=== PATIENT | male | born 1985 | race Caucasian/White ===

== ENCOUNTER 2024-05-10 17:56 | Day surgery (SDC) | payer OTHER, SELFPAY ==
[2024-05-10] VITALS (12 sets, daily range): BP systolic 113–143; BP diastolic 62–86; BMI 27.6
[2024-05-10 12:51] LABS: % Basophils 0.2 % (0-2); % Eosinophils 0.1 % (0-6); % Immature Granulocytes 0.4 % (0-0.5); % Lymphocytes 3.6 % (20.5-51.1); % Monocytes 2.7 % (1.7-9.3); Absolute Immature Granulocytes 0.1 10^3/uL (0-0.05); Absolute Lymphocytes 0.5 10^3/uL (1.2-3.4); Absolute Monocytes 0.4 10^3/uL (0.1-0.6); Absolute Neutrophils 12.6 10^3/uL (1.4-6.5); Hematocrit 40.9 % (39.0-52.0); Hemoglobin 14.8 g/dL (13.0-18.0); Mean Corp Hgb Conc. 36.2 g/dL (33.0-37.0); Mean Corpuscular Hgb 31.4 pg (27.0-31.0); Mean Corpuscular Volume 86.8 fL (80.0-94.0); Mean Platelet Volume 10.5 fL (7.4-10.4); Nucleated Red Blood Cells % 0 % (-); Platelet Count 223 10^3/uL (130-400); Red Blood Cell Count 4.71 10^6/uL (4.70-6.10); Red Cell Dist. Width 12.2 % (11.5-14.5); White Blood Cell Count 13.6 10^3/uL (4.8-10.8)
[2024-05-10 13:05] LABS: Lactic Acid 1.3 mmol/L (0.7-2.0)
[2024-05-10 13:06] LABS: ALT (SGPT) 74 U/L (0-50); AST (SGOT) 59 U/L (17-59); Albumin 4.7 g/dl (3.5-5.0); Alkaline Phosphatase 58 U/L (38-126); Blood Urea Nitrogen 15 mg/dl (9-20); Calcium 9.6 mg/dl (8.4-10.2); Carbon Dioxide 27 mmol/L (22-30); Chloride 101 mmol/L (98-107); Glucose 113 mg/dl (70-99); Lipase 40 U/L (23-300); Sodium 138 mmol/L (135-145); Total Bilirubin 1.7 mg/dl (0.2-1.3); Total Protein 7.3 g/dl (6.3-8.2); eGFR > 60.00
[2024-05-10] MEDS: MOTRIN 400 MG PO (13:16)
[2024-05-10] MEDS: OMNIPAQUE 50 ML PO (13:16)
--- NOTE | 2024-05-10 13:36 | ED.GENMED ---
History of Present Illness
General
Chief Complaint: Abdominal Pain
Source: patient
Exam Limitations: none
Time Seen by Provider: 05/10/24 12:56
Nursing documentation reviewed up to this point in time: agreed with
History of Present Illness
History of Present Illness:
Patient presents to ED secondary to persistent lower abdominal pain with nausea sensation, as well as chills since last night. Abdominal pain described as sharp, nonradiating, without any alleviating or exacerbating factors. Upon arrival, patient
is found to be febrile, which he was not aware of. Denies trauma. Denies back pain. Denies difficulty with urination. Denies previous history of similar symptoms. Denies recent change in diet. Denies recent travel.
Past History
Past History
ED Past Medical History: None
Social History
Tobacco: Non-smoker
Alcohol: Occasional
Personal:
Living: with family
Employment: Employed ([employer])
Review of Systems
Review of Systems
Allergies reviewed?: Yes
All Other Systems: ROS reviewed and negative except as documented in HPI and ROS
Constitutional: Denies chills
EENT: Reports no symptoms
Respiratory: Reports no symptoms
Cardiac: Reports no symptoms
ABD/GI: Reports abdominal pain and nausea; Denies vomiting or diarrhea
: Reports no symptoms; Denies flank pain
Musculoskeletal: Reports no symptoms; Denies back pain
Skin: Reports no symptoms
Neurological: Reports no symptoms
Phy Exam
Physical Exam
Physical Exam:
Physical Exam
General: mild painful distress, not acutely ill. febrile
Head: nc/at. eomi
Neck: supple. no meningeal signs.
Heart: tachycardic, no murmur. equal radial pulses.
Lungs: no acute respiratory distress. clear bilaterally
Abdomen: normal bowel sounds. moderate RLQ tenderness to palpation. no guarding/rebound.
Neuro: alert and oriented. no focal neurological deficits
Skin: no rash
Psychiatric: well kept. interactive and cooperative
Extremities: no edema. no calf tenderness
Sepsis
Sepsis Screening
Sepsis Assessment: Sepsis Ruled Out
Sepsis Screen
Sepsis Screen: Sepsis Ruled Out
Date: 05/11/24
Time: 18:54
Course
Orders/Labs/Results
Orders:
Orders
05/10/24
VTE Contraindication Routine
VTE Mechanical Device Contraindication: Low Risk- LOS < 2 days
Pharmocologic Contraindication: Low Risk- LOS < 2 days
Risk assessment completed and pt is low risk: Yes
05/10/24 12:40
CMP [Comprehensive Metabolic Panel] Urgent
Complete Blood Count/With Diff Urgent
Lactic Acid Urgent
Lipase Urgent
05/10/24 13:11
CT Abd/pel W Iv And Oral Contr Urgent
Comment:
Reason For Exam: RLQ pain
Ibuprofen [Motrin] 400 mg PO NOW STA
Iohexol [Omnipaque] See Protocol PO NOW STA
05/10/24 Dinner
NPO
Allow oral meds: Yes
Allow clear liquids: Sips of Clears
NPO with Ice Chips: Yes
05/10/24 17:12
HYDROmorphone [Dilaudid] 0.25 mg IV PACU-Q5MPRN PRN
HYDROmorphone [Dilaudid] 0.5 mg IV PACU-Q5MPRN PRN
Meperidine [Demerol] 12.5 mg IV PACU-Q5MPRN PRN
Ondansetron Injectable [Zofran] 4 mg IV PACU-ONCEPRN PRN
Prochlorperazine [Compazine] 5 mg IV PACU-ONCEPRN PRN
Notify MD As Directed
Notify physician if: for SDS patients with known or suspected sleep obstructive sleep apnea, monitor in the
PACU.
Notify MD for any apneic/desaturation episodes
O2 Therapy [RESP] Urgent
Titrate/Wean O2 to maintain O2 sat greater than (%): 92
Special Instructions: -Provide supplemental oxygen to achieve O2 sat of 92% or greater.
-After 15 min, may wean O2 and discontinue if patient is able to maintain O2 sat of 92%
or greater during recovery period.
If patient is a discharge home, without oxygen therapy, notify anestheiologist if
unable to maintain O2 SAT of 92% or greater on room air for MD clearance.
05/10/24 17:14
Bupivacaine 0.5%Pf/Epinephrin [Sensorcain-Mpf Epi 0.5%-0.0005] 30 ml .ROUTE .STK-MED ONE
05/10/24 17:16
Lidocaine 2% Mpf [Xylocaine Mpf 2%] 100 mg .ROUTE .STK-MED ONE
Propofol [Diprivan] 20 ml .ROUTE .STK-MED
Rocuronium [place] [Rocuronium] 50 mg .ROUTE .STK-MED ONE
05/10/24 17:17
Dexamethasone Sod Phosphate [Decadron] 20 mg .ROUTE .STK-MED ONE
Fentanyl Citrate/Pf [Sublimaze] 100 mcg .ROUTE .STK-MED ONE
Midazolam HCl [Versed] 2 mg .ROUTE .STK-MED ONE
Ondansetron Injectable [Zofran] 4 mg .ROUTE .STK-MED ONE
05/10/24 17:26
Piperacillin/Tazo 3.375 Gram [Zosyn] 3.375 gram in 50 ml IV NOW
05/10/24 17:45
Code Status As Directed
Resuscitation Status: Full Code
Activity As Directed
Activity Level: Out of Bed-Early Mobility
Intake/ Output As Directed
Frequency: Per unit guidelines
Vital Signs As Directed
Frequency: Per unit guidelines
05/10/24 17:46
HYDROmorphone [Dilaudid] 0.5 mg IV Q2HPRN PRN
Ondansetron Injectable [Zofran] 4 mg IV Q6HPRN PRN
05/10/24 18:00
Ketorolac [Toradol] 10 mg IV Q6H
05/10/24 18:11
HYDROmorphone [Dilaudid] 0.25 mg IV PACU-Q5MPRN PRN
HYDROmorphone [Dilaudid] 0.5 mg IV PACU-Q5MPRN PRN
HYDROmorphone [Dilaudid] 0.5 mg IV Q2HPRN PRN
Meperidine [Demerol] 12.5 mg IV PACU-Q5MPRN PRN
Ondansetron Injectable [Zofran] 4 mg IV PACU-ONCEPRN PRN
Ondansetron Injectable [Zofran] 4 mg IV Q6HPRN PRN
Prochlorperazine [Compazine] 5 mg IV PACU-ONCEPRN PRN
05/10/24 18:32
OR Pathology Routine
Pre-Operative Diagnosis: ACUTE APPENDICITIS, UMBILICAL HERNIA
Post-Operative Diagnosis: ACUTE APPENDICITIS, UMBILICAL MASS
Operative Procedure: LAPAROSCOPIC APPENDECTOMY, PARTIAL CECECTOMY, UMBILICAL HERNIA REPAIR
Surgeon: ilene
Circulating Nurse: drew
Specimen Type: umbilical hernia
:: APPENDIX
05/10/24 18:54
HYDROmorphone [Dilaudid] 1 mg .ROUTE .STK-MED ONE
05/10/24 19:06
Sugammadex Sodium [Bridion] 200 mg .ROUTE .STK-MED ONE
05/10/24 19:36
Admit Patient As Directed
Co-Sign Provider:
Level of Care: Post Proc/Surg Recovery
Assign to:: Medical/Surgical
Physician / Group: Serafin
Diagnosis: Acute Appendicitis
Patient Condition: Fair
05/10/24 19:41
PRN Pain Medication Management As Directed
May give lesser potent ordered pain med per pt: Yes
preference::
Protocol:: Medication orders for pain may be administered in a
manner that supports deferring to patient preference
when the pt is:
- Requesting an ordered lesser potent pain medication.
Least to most potent pain medications are defined
as: acetaminophen < NSAID < tramadol < opioids
(morphine, oxycodone, hydromorphone).
- Requesting a lesser dose of the same medication IF
ORDERED.
- Requesting a less intrusive route of administration
if both routes are prescribed by the provider (PO <
IV).
05/10/24 20:00
Acetaminophen [Tylenol] 650 mg PO Q4HWA
Acetaminophen [Tylenol] 650 mg PO Q4HWA
05/11/24 00:00
Ketorolac [Toradol] 10 mg IV Q6H
05/11/24 00:40
Case Management Consult ONCE
Case Management Consult: Advanced Directive
Requested By:: NURSING
Comment:
05/11/24 Breakfast
Regular
At Your Request: Full Participation
05/11/24 09:34
Discharge Patient As Directed
Discharge patient after: lunch
Is patient a candidate for the influenza vaccine?: No
Do you have a designated caregiver: Yes-same as spokesperson
Abnormal Lab Results
05/10/24
12:40
WBC 13.6 H 10^3/uL
(4.8-10.8)
MCH 31.4 H pg
(27.0-31.0)
MPV 10.5 H fL
(7.4-10.4)
Abs Immat Gran (auto) 0.1 H 10^3/uL
(0-0.05)
Absolute Neuts (auto) 12.6 H 10^3/uL
(1.4-6.5)
Absolute Lymphs (auto) 0.5 L 10^3/uL
(1.2-3.4)
Neutrophils % 93.0 H %
(42.2-75.2)
Lymphocytes % 3.6 L %
(20.5-51.1)
Glucose 113 H mg/dl
(70-99)
Total Bilirubin 1.7 H mg/dl
(0.2-1.3)
ALT 74 H U/L
(0-50)
05/10/24 12:40
05/10/24 12:40
Vital Signs
Initial and Last Documented VS:
Initial Vital Signs
Temp Pulse Resp BP Pulse Ox
100.7 F H 113 16 118/71 97
05/10/24 12:24 05/10/24 12:24 05/10/24 12:24 05/10/24 12:24 05/10/24 12:24
Last Documented Vital Signs
Temp Pulse Resp BP Pulse Ox
97.6 F 87 19 137/79 98
05/11/24 11:19 05/11/24 11:19 05/11/24 11:19 05/11/24 11:19 05/11/24 11:19
MDM/Problems Addressed
MDM/Problems Addressed:
History, exam, and CT scan consistent with acute appendicitis, without abscess/perforation.
Surgery, Dr. Betancourt, notified via [place] text.
*Critical Care Note
Total Time (30-74mins, 75-104mins- exclusive of procedures): Not Applicable
ED Attending Note
-
Portions of this chart may have been created with voice recognition software.� Occasional wrong word or��sound alike� substitutions may have occurred due to the inherent limitations of voice recognition software.
Discharge Plan
Departure
Patient Disposition: Admit
Date of Disposition: 05/10/24
Time of Disposition: 16:01
Presentation/result/management discussed w/ accepting MD/DO:
Discharge Problem:
Acute appendicitis
Interventions
Interventions:
*Risk Screen - Suicide Last Done: 05/10/24 21:14
*General Assessment Last Done: 05/10/24 14:03
*Neglect/Abuse Screening Last Done: 05/10/24 12:24
*ED COVID-19 Vaccine History Last Done: 05/10/24 21:14
*Nursing Disposition Last Done: 05/10/24 17:55
[facility] Assessment Last Done: 05/10/24 14:03
Discharge Date and Time
Discharge Date/Time: 05/10/24 17:56
[2024-05-10] MEDS: ZOSYN 50 IV (17:28)
--- NOTE | 2024-05-10 17:31 | HPS.HSE ---
Family Physician
-
Family Physician: Delbert Infante
Chief Complaint
-
Right lower quadrant abdominal pain
History of Present Illness
This is a 38 male with no significant past medical history who presents with a 1 day history of sharp nonradiating initially periumbilical now right lower quadrant abdominal pain. The patient denies Fever, Chest Pain, Shortness Of Breath, Nausea,
Vomiting, changes in urinary and bowel habits, unintentional weight loss, jaundice, icterus, acolic stools. Dad does have Crohn's disease he believes.
Last Endoscopy: Never
Last colonoscopy: Never
Medical History
Past Medical History
Past Medical History: Reports None
Past Surgical History: Reports None
Social History
Tobacco: Non-smoker
Alcohol: Occasional
Drug: None
Personal:
Living: With Family
Employment: Employed
Family History
Family History: Not pertinent
Allergies / Home Medications
Allergies reflects when Allergies were last updated in [facility].
Home Medications with original date entered in [facility]
Allergy/Medication List:
None
Review of Systems
-
A 12 point ROS was completed and negative except as noted: Yes
Physical Exam
Vital Signs
Vital Signs
Temp Pulse Resp BP Pulse Ox
100.7 F H 113 18 143/62 99
05/10/24 12:24 05/10/24 14:08 05/10/24 14:08 05/10/24 14:08 05/10/24 14:08
Physical Exam
General: Well Developed
HEENT: NormoCephalic
Respiratory: Clear
GI: Soft, Non Distended, Tender (Tender to palpation in the right lower quadrant.) and Other (Mildly tender umbilical hernia)
Laboratory Results
-
05/10/24 12:40
05/10/24 12:40
Laboratory Results
Lactic Acid 1.3 mmol/L (0.7-2.0) 05/10/24 12:40
Total Bilirubin 1.7 mg/dl (0.2-1.3) H 05/10/24 12:40
AST 59 U/L (17-59) 05/10/24 12:40
ALT 74 U/L (0-50) H 05/10/24 12:40
Alkaline Phosphatase 58 U/L (38-126) 05/10/24 12:40
Lipase 40 U/L (23-300) 05/10/24 12:40
Data Reviewed
-
CT Scan: Image Personally Visualized and interpreted, Discussed with Physician and Discussed with Patient
Lab Data: Labs Reviewed by me, Discussed with Physician and Discussed with Patient
Impression/Plan
-
IMPRESSION:
This is a 38-year-old male who presents with a 1 day history of abdominal pain. Exam, imaging, blood work all consistent with acute appendicitis.
PLAN:
Will plan for a laparoscopic appendectomy in the OR today.
N.p.o., IV fluids, IV antibiotics.
Risks/Benefits/Alternatives, expected postoperative course and possible complications (bleeding, infection, injury to surrounding structures, acute/chronic pain) discussed at length. Patient wishes to proceed with surgery. All questions answered.
Consent obtained.
I spent 60 minutes in total for the care of this patient today including direct patient care and counseling, reviewing labs, imaging, coordination of care, as well as documentation.
--- NOTE | 2024-05-10 17:35 | W.SUR.PREOP ---
Pre-Operative Surgical Note
-
I have examined this patient prior to the performance of the scheduled procedure.
The patient's condition is unchanged from the time of the current History and
Physical and the patient is able to undergo the scheduled procedure.
--- NOTE | 2024-05-10 19:22 | W.IMMPOSTOP ---
Surgical Immed Post Op Note
-
Primary Surgeon: Clyde Betancourt MD
Assisting Surgeon: None
Pre-op Diagnosis: Acute appendicitis, umbilical hernia
Post-op Diagnosis: Appendiceal mass, umbilical hernia
Procedure Performed:
1. Laparoscopic partial cecectomy
2. Open primary umbilical hernia repair
Anesthesia Type: General
Specimen / Cultures:
1. Umbilical hernia
2. Partial cecectomy
Estimated Blood Loss: 3 cc
Complications: None
Operative Findings: 1.5 cm umbilical hernia containing preperitoneal fat. Just to the left of the umbilicus. Contents resected and sent for pathology. Intra-abdominal access gained through this defect with initially a 5 mm port. Standard 3 port
appendectomy. The appendix was mildly inflamed but but there was a palpable and visible mass at the base of the appendix that was fairly firm but mobile. The mesentery of the appendix was ligated with a bipolar energy device. The base of the
cecum was mobilized and divided using 2 fires of a 60 purple on an Endo JUAN stapler. No other masses noted around the abdomen or over the surface of the liver. The specimen was placed in a 5 mm specimen retrieval bag and removed.
POST OP PLAN:
Imaging: None
Labs: Routine AM
Diet: Advance to Regular as tolerated
Analgesia: Tylenol 650mg q6 Ligia, Dori 5mg q6 PRN, Dilaudid 0.5mg q2h PRN
Neuro/vascular checks: q4h
AC/AP: Hold Therapeutic AC, Ok for DVT PPx
Activity: Ad Steph
Wound/Incisions/Drains: Routine
Abx: Will do 24 hours perioperative antibiotics.
Dispo: RNF, anticipate discharge home tomorrow.
[2024-05-10] MEDS: DILAUDID 0.5 MG IV (20:21)
--- NOTE | 2024-05-10 21:05 | PTCARENOTE ---
Pt arrived at 21:00 from PACU post Lap Appy, Partial Cecectomy, Umbilical Hernia Repair with General and Local EBL 3mL. Pt AOx3. bed in a low possition, pt denies pain, call abrams in reach.
[2024-05-10] MEDS: TORADOL 10 MG IV (23:45)
[2024-05-10] MEDS: TYLENOL PO (23:55)
[2024-05-11] MEDS: TYLENOL 650 MG PO ×4 (01:30→11:20)
[2024-05-11 02:52] VITALS: BP 114/66
[2024-05-11] MEDS: TORADOL 10 MG IV ×2 (05:04→11:20)
[2024-05-11 07:50] VITALS: BP 130/73
--- NOTE | 2024-05-11 09:34 | W.PN.GS2 ---
Today's Communication / Plan
-
Dispo planning
Assessment / Plan
-
This is a 38-year-old male who presents with 1 day history of right lower quadrant pain found to have acute appendicitis on CT scan. POD#1 laparoscopic appendectomy. Appendiceal mass noted the base of the appendix otherwise doing well, expected
postoperative course.
Advance diet
DC home today
Time Spent
Total Time Spent with Patient (in minutes): 20
Subjective Data
-
Date of Service: May 11, 2024
Interval Events:
No acute events overnight. Slept well. Pain Controlled. Denies Nausea/Vomiting, +bowel function. Tolerating diet.
Objective Data
-
Intake and Output
05/10/24 05/11/24 05/12/24
06:59 06:59 06:59
Intake Total 200 / 200
Output Total 400 / 400
Balance -200 / -200
Intake:
IV fluids (Total) 200 / 200
Normosol 200 / 200
Output:
Urine, Voided 400 / 400
Vital Signs
Temp Pulse Resp BP Pulse Ox
98.5 F 84 18 130/73 98
05/11/24 07:50 05/11/24 07:50 05/11/24 07:50 05/11/24 07:50 05/11/24 07:50
Lab Results
05/10/24 12:40
05/10/24 12:40
Calcium 9.6 mg/dl (8.4-10.2) 05/10/24 12:40
Total Bilirubin 1.7 mg/dl (0.2-1.3) H 05/10/24 12:40
AST 59 U/L (17-59) 05/10/24 12:40
ALT 74 U/L (0-50) H 05/10/24 12:40
Alkaline Phosphatase 58 U/L (38-126) 05/10/24 12:40
Total Protein 7.3 g/dl (6.3-8.2) 05/10/24 12:40
Albumin 4.7 g/dl (3.5-5.0) 05/10/24 12:40
Physical Exam
-
GENERAL/NEURO: Awake, Alert, no distress
CHEST: Unlabored breathing on RA
ABDOMEN: Soft, Non-Tender, Non-Distended, incisions clean dry and intact.
--- NOTE | 2024-05-11 09:37 | OR.RPT ---
Addendum entered and electronically signed by Clyde Betancourt MD 05/17/24 17:10:
Date of operation should be 05/10/2024
Original Note:
Operative Report
Operative Report
Patient Name: Rafal Lee
: 1985
Date of Operation: 05/11/2024
Preoperative Diagnosis: Acute Appendicitis
Postoperative Diagnosis: Appendiceal mass
Procedure(s):
1. Laparoscopic partial cecectomy
2. Open primary umbilical hernia repair
Surgeon(s):
Dr. Betancourt
Mirror Painter(s):
None
Anesthesia: General
Estimated Blood Loss: 3 cc
Urine Output: None
Drains/Lines/Implants: None
Specimens:
1. Umbilical hernia
2. Partial cecectomy
HPI/Surgical Indications:
This is a 38 year old male who presents with a 1 day history of abdominal pain. Exam, labs and imaging are consistent with acute appendicitis. Risks/Benefits/Alternatives were discussed at length, and the patient agreed to proceed with surgery.
Operative Findings: 1.5 cm umbilical hernia containing preperitoneal fat. Just to the left of the umbilicus. Contents resected and sent for pathology. Intra-abdominal access gained through this defect with initially a 5 mm port. Standard 3 port
appendectomy. The appendix was mildly inflamed but but there was a palpable and visible mass at the base of the appendix that was fairly firm but mobile. The mesentery of the appendix was ligated with a bipolar energy device. The base of the
cecum was mobilized and divided using 2 fires of a 60 purple on an Endo JUAN stapler. No other masses noted around the abdomen or over the surface of the liver. The specimen was placed in a 5 mm specimen retrieval bag and removed.
Procedure Description:
The patient was placed in the supine position, with the left arm tucked, and general anesthesia was induced. The abdomen was prepared and draped in a sterile fashion so as to expose the entire abdomen. A surgical time out was taken. We began by
making an infraumbilical incision and isolating his umbilical hernia which appeared to be protruding just the left of his umbilicus. This was hernia sac was isolated off of the umbilical stalk and opened. It was containing preperitoneal fat and
was resected to the level of the surrounding fascia. The defect measured roughly 1.5 cm. Through this aperture we grasped the peritoneal layer and incised it with Metzenbaum scissors. A 5 mm balloontipped trocar was then inserted into the abdomen
and pneumoperitoneum was achieved. After confirming no injury on entrance, two additional 5mm ports were placed in the suprapubic area just off midline and in the left lower quadrant. The patient was placed in Trendelenberg with the right slightly
up. The appendix was identified and
Though mildly hyperemic it did not appear particularly inflamed or infected. Using laparoscopic instruments I was able to palpate near the base of the appendix where it appeared slightly deformed and a hard but mobile intraluminal mass could be
appreciated. The serosa of the appendix and cecum appeared normal. We looked around the abdominal wall and viscera and no other masses or abnormalities were noted. The mesentery of the appendix was ligated using a laparoscopic bipolar energy
device. The inferior portion of the white line of Toldt was also incised to help mobilize the cecum. Thankfully there was enough space between the TI and the base of the appendix that I felt like I could do a partial cecectomy and remove the
entire mass. The umbilical 5 mm port was upsized to a 12 and using 2 fires of a 60 purple load on an Endo JUAN stapler performed a partial cecectomy taking care to not come across the mass at the base of the appendix. The specimen was placed in a
specimen retrieval bag. Hemostasis was confirmed and the ports were removed under visualization. The specimen was passed off the field. The umbilical hernia was closed with a running 0-PDS and the skin for all three ports was closed with interrupted
4-0 monocryls and covered with dermabond. The patient was awoken from anesthesia in good condition and transported to the recovery area.
I was the attending physician and performed the procedure with no assistance. I was present for all portions of the case.
Clyde Betancourt MD
--- NOTE | 2024-05-11 10:33 | CM ---
Met with pt at bedside
Pt reports he lives alone in a 2 story home; 7 steps to enter, 15 steps to 2nd fl
Independent, Employed [employer], drives
DME - none
SNF/HH - no past hx
Has ride home at discharge
PCP - Delbert Jim
Pharm - [employer]
CM consult - advance directive
Discussed with pt. Given information packet
Plan - anticipate home no needs
[2024-05-11 11:19] VITALS: BP 137/79
== END 2024-05-11 13:07 | disposition home or self-care (01) ==
LOC: SDS 17:56
PROVIDERS: Emergency Medicine; ATTENDING PHYSICIAN Surgery; EMERGENCY PHYSICIAN Emergency Medicine; FAMILY PHYSICIAN Family Medicine
DX: K35.80 Unspecified acute appendicitis (principal); K42.9 Umbilical hernia without obstruction or gangrene; K63.9 Disease of intestine, unspecified
CPT/HCPCS: 44970; 88304; 88307; 74177; 80053; 83605; 83690; 85025; 96365; 99285; C1776; Q9967

== ENCOUNTER 2024-05-31 20:11 | Emergency (ER) | payer OTHER, SELFPAY ==
[2024-05-31 20:16] VITALS: BP 150/77
[2024-05-31 20:43] LABS: % Basophils 0.4 % (0-2); % Eosinophils 2.7 % (0-6); % Immature Granulocytes 0.3 % (0-0.5); % Lymphocytes 47.6 % (20.5-51.1); % Monocytes 12.7 % (1.7-9.3); % Neutrophils 36.3 % (42.2-75.2); Absolute Eosinophils 0.2 10^3/uL (0-0.7); Absolute Lymphocytes 3.2 10^3/uL (1.2-3.4); Absolute Monocytes 0.9 10^3/uL (0.1-0.6); Absolute Neutrophils 2.5 10^3/uL (1.4-6.5); Hematocrit 41.9 % (39.0-52.0); Hemoglobin 14.3 g/dL (13.0-18.0); Mean Corp Hgb Conc. 34.1 g/dL (33.0-37.0); Mean Platelet Volume 10.5 fL (7.4-10.4); Nucleated Red Blood Cells % 0 % (-); Platelet Count 270 10^3/uL (130-400); Red Blood Cell Count 4.76 10^6/uL (4.70-6.10); Red Cell Dist. Width 12.4 % (11.5-14.5); White Blood Cell Count 6.8 10^3/uL (4.8-10.8)
[2024-05-31 21:00] LABS: ALT (SGPT) 91 U/L (0-50); AST (SGOT) 85 U/L (17-59); Albumin 4.6 g/dl (3.5-5.0); Alkaline Phosphatase 59 U/L (38-126); Blood Urea Nitrogen 16 mg/dl (9-20); Calcium 9.3 mg/dl (8.4-10.2); Carbon Dioxide 30 mmol/L (22-30); Chloride 101 mmol/L (98-107); Glucose 125 mg/dl (70-99); Lipase 71 U/L (23-300); Potassium 3.6 mmol/L (3.5-5.1); Sodium 141 mmol/L (135-145); Total Bilirubin 0.6 mg/dl (0.2-1.3); Total Protein 7.3 g/dl (6.3-8.2); eGFR > 60.00
[2024-05-31 21:12] LABS: Troponin I < 0.012 ng/ml
[2024-05-31 22:20] VITALS: BP 127/69
[2024-05-31 22:36] VITALS: BMI 26.3
--- NOTE | 2024-05-31 22:38 | ED.GENMED ---
History of Present Illness
<Aleja Campbell NP - Last Filed: 05/31/24 23:43>
General
Chief Complaint: Abdominal Pain
Source: patient
Exam Limitations: none
Time Seen by Provider: 05/31/24 21:47
Nursing documentation reviewed up to this point in time: agreed with
History of Present Illness
History of Present Illness:
Patient to ED with complaint of sudden onset of upper abdominal pain. Became diaphoretic, nauseous. Denies fever/chills, vomiting or diarrhea. Pain has decreased but still feels discomfort. Brought to ED by father for eval. S/p appendectomy x
2 weeks.
Past History
<Aleja Campbell NP - Last Filed: 05/31/24 23:43>
Past History
ED Past Medical History: None
ED Past Surgical History: Appendectomy (2 weeks ago)
Social History
Tobacco: Non-smoker
Alcohol: Occasional
Drug: None
Personal:
Living: with family
Employment: Employed ([employer])
Review of Systems
<Aleja Campbell NP - Last Filed: 05/31/24 23:43>
Review of Systems
Allergies reviewed?: Yes
All Other Systems: ROS reviewed and negative except as documented in HPI and ROS
Constitutional: Reports no symptoms
EENT: Reports no symptoms
Respiratory: Reports no symptoms
Cardiac: Reports no symptoms
ABD/GI: Reports abdominal pain
: Reports no symptoms
Musculoskeletal: Reports no symptoms
Skin: Reports no symptoms
Neurological: Reports no symptoms
Psychiatric: Reports no symptoms
Phy Exam
<Aleja Campbell NP - Last Filed: 05/31/24 23:43>
General Physical Exam
General Presentation: well appearing and no apparent distress
General age: appears stated age
General Skin: warm and dry
General Habitus: normal
Pulmonary Exam
Pulmonary Exam: no respiratory distress
Gastrointestinal Exam
Gastrointestinal Exam: normal bowel sounds, soft, no organomegaly, non distended and no cva tenderness
Palpation: left upper quadrant: Minimal tenderness, left lower quadrant: No tenderness, right upper quadrant: Minimal tenderness and right lower quadrant: No tenderness
Musculoskeletal Exam
Musculoskeletal Exam: full ROM
Skin Exam
Skin Exam: normal color, warm/dry and no rash
Psychiatric Exam
Psychiatric Exam: normal mood/affect
Course
<Aleja Campbell NP - Last Filed: 05/31/24 23:43>
Orders/Labs/Results
Orders:
Orders
05/31/24 20:20
Electrocardiogram (*1) Urgent
Reason for Study: Abdominal Pain
EKG- Treatment ONCE
05/31/24 20:28
Complete Blood Count/With Diff Urgent
Comprehensive Metabolic Panel Urgent
Lipase Urgent
Troponin I Urgent
05/31/24 21:56
US Abdomen Complete/Upper Urgent
Comment:
Reason For Exam: Upper abd. pain
05/31/24 23:42
Ketorolac [Toradol] 30 mg IV NOW STA
06/01/24 01:00
CT Abd/pelvis W Iv Cont Urgent
Reason For Exam: upper abd. pain, s/p appendectomy
Abnormal Lab Results
05/31/24
20:28
MPV 10.5 H fL
(7.4-10.4)
Absolute Monos (auto) 0.9 H 10^3/uL
(0.1-0.6)
Neutrophils % 36.3 L %
(42.2-75.2)
Monocytes % 12.7 H %
(1.7-9.3)
Glucose 125 H mg/dl
(70-99)
AST 85 H U/L
(17-59)
ALT 91 H U/L
(0-50)
05/31/24 20:28
05/31/24 20:28
Vital Signs
Initial and Last Documented VS:
Initial Vital Signs
Temp Pulse Resp BP Pulse Ox
97.7 F 73 18 150/77 99
05/31/24 20:16 05/31/24 20:16 05/31/24 20:16 05/31/24 20:16 05/31/24 20:16
Last Documented Vital Signs
Temp Pulse Resp BP Pulse Ox
97.7 F 85 14 114/75 96
05/31/24 20:16 06/01/24 02:00 06/01/24 01:15 06/01/24 02:00 06/01/24 02:00
<Freddy Knox MD - Last Filed: 06/01/24 02:23>
Orders/Labs/Results
Orders:
Orders
05/31/24 20:20
Electrocardiogram (*1) Urgent
Reason for Study: Abdominal Pain
EKG- Treatment ONCE
05/31/24 20:28
Complete Blood Count/With Diff Urgent
Comprehensive Metabolic Panel Urgent
Lipase Urgent
Troponin I Urgent
05/31/24 21:56
US Abdomen Complete/Upper Urgent
Comment:
Reason For Exam: Upper abd. pain
05/31/24 23:42
Ketorolac [Toradol] 30 mg IV NOW STA
06/01/24 01:00
CT Abd/pelvis W Iv Cont Urgent
Reason For Exam: upper abd. pain, s/p appendectomy
Abnormal Lab Results
05/31/24
20:28
MPV 10.5 H fL
(7.4-10.4)
Absolute Monos (auto) 0.9 H 10^3/uL
(0.1-0.6)
Neutrophils % 36.3 L %
(42.2-75.2)
Monocytes % 12.7 H %
(1.7-9.3)
Glucose 125 H mg/dl
(70-99)
AST 85 H U/L
(17-59)
ALT 91 H U/L
(0-50)
05/31/24 20:28
05/31/24 20:28
Vital Signs
Initial and Last Documented VS:
Initial Vital Signs
Temp Pulse Resp BP Pulse Ox
97.7 F 73 18 150/77 99
05/31/24 20:16 05/31/24 20:16 05/31/24 20:16 05/31/24 20:16 05/31/24 20:16
Last Documented Vital Signs
Temp Pulse Resp BP Pulse Ox
97.7 F 85 14 114/75 96
05/31/24 20:16 06/01/24 02:00 06/01/24 01:15 06/01/24 02:00 06/01/24 02:00
<Freddy Knox MD - Last Filed: 06/01/24 02:23>
Update Note
Update Note:
CT report reviewed and discussed with patient, including ductal gallstones. Repeat abdominal exam: Soft and nontender. Discussed treatment options, including admission versus outpatient consultation with GI physician. At this time, as pain has
resolved completely, patient would like to discharge home, for an urgent outpatient follow-up. Advised to return to ED with worsening symptoms, i.e. fever/worsening pain/vomiting. Patient referred to GI physician's office via [place] text.
ED Attending Note
<Aleja Campbell NP - Last Filed: 05/31/24 23:43>
-
Portions of this chart may have been created with voice recognition software.� Occasional wrong word or��sound alike� substitutions may have occurred due to the inherent limitations of voice recognition software.
Discharge Plan
Departure
Patient Disposition: Home (Routine Discharge)
Date of Disposition: 06/01/24
Time of Disposition: 02:19
Patient with high blood pressure during this ER visit?: Yes
Discharge Problem:
Choledocholithiasis
Instructions: Gallstones (DC), Low-fat diet
Prescriptions:
No Action
acetaminophen [Tylenol Extra Strength] 500 mg Tablet
1,000 mg PO Q6HPRN PRN (Reason: mild pain)
tramadol 50 mg tablet
25 mg PO Q6HPRN PRN (Reason: severe pain/breakthrough pain) Qty: 8 0RF
ibuprofen 600 mg tablet
600 mg PO Q6H PRN (Reason: pain) Qty: 14 0RF
Referrals:
Delbert Infante DO [Family Provider] -
Marnie Willoughby MD [Active] -
Activity Restrictions/Additional Instructions:
As discussed, please follow-up with referred GI physician for further evaluation and treatment. Please return to ED immediately with worsening symptoms, i.e. fever/worsening pain/vomiting.
Interventions
Interventions:
*Risk Screen - Suicide Last Done: 05/31/24 20:16
*General Assessment Last Done: 05/31/24 20:16
*Neglect/Abuse Screening Last Done: 06/01/24 00:46
ED- Fall Risk Assessment Last Done: 05/31/24 23:17
*ED COVID-19 Vaccine History Last Done: 05/31/24 20:16
UY-Ghvlbe-Vxlkttabrg Assessment Last Done: 05/31/24 22:39
Discharge Date and Time
Print Language: [id number]
[2024-05-31 23:00] VITALS: BP 126/78
[2024-05-31] MEDS: TORADOL 30 MG IV (23:52)
[2024-06-01] VITALS: BP 138/87
[2024-06-01 01:00] VITALS: BP 129/69
[2024-06-01 02:00] VITALS: BP 114/75
== END 2024-06-01 02:30 | disposition home or self-care (01) ==
LOC: EMR 20:11
PROVIDERS: EMERGENCY PHYSICIAN Emergency Medicine; FAMILY PHYSICIAN Family Medicine
DX: K80.50 Calculus of bile duct without cholangitis or cholecystitis without obstruction (principal); R61 Generalized hyperhidrosis; Z90.49 Acquired absence of other specified parts of digestive tract
CPT/HCPCS: 99284; 96374; 74177; 76700; 80053; 83690; 84484; 85025; 93005; Q9967